=== PATIENT | male | born 1955 | race Caucasian/White ===

== ENCOUNTER 2019-07-02 18:03 | Inpatient (IN) | payer MEDICAID ==
[~2019-07-02] VITALS: Ht 170.2 cm; Wt 88.0 kg
[2019-07-02 18:11] VITALS: BP_SYST 110
[2019-07-02] MEDS ORDERED: LIDOCAINE 1% 10 MG/ML, 20 ML MDV INJ ONE (18:45)
[2019-07-02] MEDS ORDERED: CRAN450T9 PO (18:51)
[2019-07-02] MEDS ORDERED: ASPI-1153 PO (18:51)
[2019-07-02] MEDS ORDERED: BUME1TAB9 PO (18:51)
[2019-07-02] MEDS ORDERED: hydromorphone PO (18:54)
[2019-07-02] MEDS ORDERED: VANCOMYCIN HCL 1,000 MG in NS 250 ML IV ONE (19:00)
[2019-07-02] MEDS ORDERED: NACL 0.9% 1,000 ML IV ONE (19:00)
[2019-07-02] MEDS ORDERED: METO25TA3 PO (19:03)
[2019-07-02] MEDS ORDERED: NA P133E41 RC (19:03)
[2019-07-02] MEDS ORDERED: MOM PO (19:03)
[2019-07-02] MEDS ORDERED: MULT-1100 PO (19:03)
[2019-07-02] MEDS ORDERED: FERR-31 PO (19:03)
[2019-07-02] MEDS ORDERED: ESCI20TA PO (19:03)
[2019-07-02] MEDS ORDERED: ASCO500T20 PO (19:03)
[2019-07-02] MEDS ORDERED: PRO40 PO (19:03)
[2019-07-02] MEDS ORDERED: BISA-79 PO (19:03)
[2019-07-02] MEDS ORDERED: ACET325C6 PO (19:03)
[2019-07-02] MEDS ORDERED: DOCU-144 PO (19:03)
[2019-07-02] MEDS ORDERED: ZINC220T4 PO (19:03)
[2019-07-02] MEDS ORDERED: LOSA25TA3 PO (19:03)
[2019-07-02] MEDS ORDERED: AMIN30LI2 PO (19:03)
[2019-07-02] MEDS ORDERED: SPIR25TA6 PO (19:03)
[2019-07-02] MEDS ORDERED: MELA5TAB12 PO (19:03)
[2019-07-02] MEDS ORDERED: HYDR-4272 PO (19:03)
[2019-07-02 19:17] LABS: BASOPHILS # (AUTO) 0.1 K/uL (0.0-0.2); BASOPHILS % (AUTO) 0.7 % (0.0-2.0); EOSINOPHILS # (AUTO) 0.2 K/uL (0.0-0.4); EOSINOPHILS % (AUTO) 1.5 % (0.0-4.0); HEMATOCRIT 39.5 % (36-54); HEMOGLOBIN 13.5 g/dL (14.0-18.0); LYMPHOCYTES # (AUTO) 0.6 K/uL (1.0-5.5); LYMPHOCYTES % (AUTO) 5.2 % (20.5-51.5); MEAN CORPUSCULAR HEMOGLOBIN 36 pg (27-31); MEAN CORPUSCULAR HGB CONC 34 % (32-36); MEAN CORPUSCULAR VOLUME 105 fL (79.0-98.0); MONOCYTES # (AUTO) 1.1 K/uL (0.0-1.0); MONOCYTES % (AUTO) 9.8 % (1.7-9.3); NEUTROPHILS # (AUTO) 9.3 K/uL (1.8-7.7); PLATELET COUNT (AUTO) 73 K/uL (130-430); RED BLOOD CELL COUNT(AUTO) 3.78 MIL/uL (4.2-6.2); RED CELL DISTRIBUTION WIDTH 14.8 % (9.0-15.0); WHITE BLOOD COUNT (AUTO) 11.2 K/uL (4.8-10.8)
[2019-07-02 19:35] LABS: CALCIUM 8.7 mg/dL (8.4-11.0); CREATININE 1.51 mg/dL (0.55-1.30); POTASSIUM 4.3 mmol/L (3.5-5.1)
[2019-07-02] MEDS ORDERED: VANCOMYCIN HCL 1000 MG/VIAL IV ONE (19:35)
[2019-07-02 19:39] LABS: INR 1.3 (0.80-1.20); PROTHROMBIN TIME 12.5 SECS (9.5-12.5)
[2019-07-02 19:44] LABS: NEUTROPHILS % (AUTO) 82.8 % (40.0-70.0)
[2019-07-02 19:50] LABS: ALBUMIN 2.8 g/dL (3.4-4.8); TOTAL BILIRUBIN 2.7 mg/dL (0.0-1.0)
[2019-07-02 20:51] LABS: BILIRUBIN,URINE NEGATIVE (NEGATIVE); BLOOD, URINE NEGATIVE (NEGATIVE); CLARITY/URINE CLEAR (CLEAR); COLOR,URINE AMBER (YELLOW); GLUCOSE,URINE NEGATIVE (NEGATIVE); KETONES,URINE NEGATIVE (NEGATIVE); LEUKOCYTE ESTERASE ,URINE NEGATIVE (NEGATIVE); NITRITE, URINE NEGATIVE (NEGATIVE); PROTEIN URINE NEGATIVE (NEGATIVE)
[2019-07-02 21:25] VITALS: BP_SYST 96
[2019-07-02] MEDS: MORPHINE 2 MG/ML INJ. SYRINGE IVP PRN (21:55)
[2019-07-03 00:53] VITALS: BP_SYST 92
[2019-07-03] MEDS: MORPHINE 2 MG/ML INJ. SYRINGE IVP PRN ×5 (01:43→19:50)
[2019-07-03 07:55] VITALS: BP_SYST 110
[2019-07-03 08:04] LABS: ALBUMIN 2.1 g/dL (3.4-4.8); CALCIUM 7.7 mg/dL (8.4-11.0); CREATININE 0.92 mg/dL (0.55-1.30); POTASSIUM 3.8 mmol/L (3.5-5.1); TOTAL BILIRUBIN 2.6 mg/dL (0.0-1.0)
[2019-07-03] MEDS ORDERED: VANCOMYCIN HCL 1,000 MG in NS 250 ML IV SCH (09:00)
[2019-07-03 11:28] VITALS: BP_SYST 106
[2019-07-03 15:49] VITALS: BP_SYST 118
[2019-07-03] MEDS: VANCOMYCIN HCL 1,000 MG in NS 250 ML IV SCH (19:44)
[2019-07-03 20:00] VITALS: BP_SYST 129
[2019-07-03] MEDS ORDERED: MILK OF MAGNESIA 30 ML UDC PO PRN (20:15)
[2019-07-03] MEDS ORDERED: BISACODYL 5 MG TABLET.DR (DULCOLAX) PO PRN (20:15)
[2019-07-04] MEDS: MORPHINE 2 MG/ML INJ. SYRINGE IVP PRN ×2 (00:23→05:45)
[2019-07-04 00:51] VITALS: BP_SYST 127
[2019-07-04] MEDS ORDERED: SODIUM PHOSPHATE,MONO-DIBASIC 133 ML ENEMA RC PRN (02:00)
[2019-07-04 07:25] LABS: BASOPHILS % (AUTO) 0.6 % (0.0-2.0); EOSINOPHILS # (AUTO) 0.1 K/uL (0.0-0.4); LYMPHOCYTES # (AUTO) 0.4 K/uL (1.0-5.5); LYMPHOCYTES % (AUTO) 14.4 % (20.5-51.5); MONOCYTES # (AUTO) 0.3 K/uL (0.0-1.0); NEUTROPHILS # (AUTO) 2.2 K/uL (1.8-7.7); WHITE BLOOD COUNT (AUTO) 3.1 K/uL (4.8-10.8)
[2019-07-04 07:50] VITALS: BP_SYST 115
[2019-07-04 07:51] LABS: ALBUMIN 2.1 g/dL (3.4-4.8); C-REACTIVE PROTEIN QUANT 3.4 mg/dL (0-0.5); CREATININE 0.78 mg/dL (0.55-1.30); POTASSIUM 4.3 mmol/L (3.5-5.1); TOTAL BILIRUBIN 2.5 mg/dL (0.0-1.0)
[2019-07-04 07:53] LABS: EOSINOPHILS % (AUTO) 3.2 % (0.0-4.0); HEMATOCRIT 34.5 % (36-54); MEAN CORPUSCULAR HEMOGLOBIN 37 pg (27-31); MEAN CORPUSCULAR HGB CONC 35 % (32-36); MEAN CORPUSCULAR VOLUME 105 fL (79.0-98.0); NEUTROPHILS % (AUTO) 71.8 % (40.0-70.0); RED BLOOD CELL COUNT(AUTO) 3.28 MIL/uL (4.2-6.2); RED CELL DISTRIBUTION WIDTH 14.4 % (9.0-15.0)
[2019-07-04 08:15] LABS: CALCIUM 8.3 mg/dL (8.4-11.0)
[2019-07-04 08:16] LABS: PLATELET COUNT (AUTO) 39 K/uL (130-430)
[2019-07-04] MEDS: DOCUSATE SODIUM 100 MG CAPSULE PO SCH (08:37)
[2019-07-04] MEDS: MULTIVITS,CA,MINERALS/IRON/FA 1 TABLET PO SCH (08:37)
[2019-07-04] MEDS: HYDROmorphone 2 MG TAB PO PRN (08:37)
[2019-07-04] MEDS: FERROUS SULFATE 325 MG TABLET.DR PO SCH ×2 (08:37→22:20)
[2019-07-04] MEDS: ASCORBIC ACID 500 MG TABLET PO SCH (08:37)
[2019-07-04] MEDS: CITALOPRAM HYDROBROMIDE 20 MG TABLET PO SCH (08:37)
[2019-07-04] MEDS: ASPIRIN 81 MG TABLET(ECOTRIN) PO SCH (08:37)
[2019-07-04] MEDS: METOPROLOL SUCCINATE 25 MG TAB.SR.24H (TOPROL XL) PO SCH (08:38)
[2019-07-04] MEDS: SPIRONOLACTONE 25 MG TABLET (ALDACTONE) PO SCH (08:38)
[2019-07-04] MEDS: PANTOPRAZOLE SODIUM 40 MG TAB PO SCH (08:38)
[2019-07-04] MEDS: LOSARTAN POTASSIUM 25 MG TABLET PO SCH (08:38)
[2019-07-04] MEDS: VANCOMYCIN HCL 1,000 MG in NS 250 ML IV SCH ×2 (08:43→22:10)
[2019-07-04 08:53] LABS: ERYTHROCYTE SEDIMENTATION RATE 14 MM/HR (0-15)
[2019-07-04] MEDS ORDERED: NON-FORMULARY MEDICATION (Amino Acids/Protein Hydrolys (Pro-Stat Liquid) 30 ML) PO SCH (09:00)
[2019-07-04] MEDS: BUMETANIDE 1 MG TABLET PO SCH (09:29)
[2019-07-04 13:05] VITALS: BP_SYST 149
[2019-07-04] MEDS ORDERED: MUPIROCIN 2% TOPICAL OINTMENT 22 GM NS ONE (14:00)
[2019-07-04] MEDS ORDERED: BALSAM PERU/CASTOR OIL 60 GM OINT...G. TP ONE (16:00)
[2019-07-04] MEDS: HYDROcodone/ACETAMIN 5-325 MG TAB (NORCO/ VICODIN) PO PRN (16:07)
[2019-07-04 17:02] VITALS: BP_SYST 163
[2019-07-04 20:20] VITALS: BP_SYST 130
[2019-07-04] MEDS: MUPIROCIN 2% TOPICAL OINTMENT 22 GM NS SCH (22:20)
[2019-07-04] MEDS: MELATONIN 3 MG TABLET PO SCH (22:21)
[2019-07-05 00:05] VITALS: BP_SYST 96
[2019-07-05 04:00] VITALS: BP_SYST 135
[2019-07-05] MEDS: HYDROmorphone 2 MG TAB PO PRN ×3 (04:20→17:32)
[2019-07-05 06:48] LABS: BASOPHILS % (AUTO) 0.3 % (0.0-2.0); EOSINOPHILS % (AUTO) 0.5 % (0.0-4.0); HEMATOCRIT 34.3 % (36-54); HEMOGLOBIN 11.9 g/dL (14.0-18.0); LYMPHOCYTES # (AUTO) 0.7 K/uL (1.0-5.5); LYMPHOCYTES % (AUTO) 9.8 % (20.5-51.5); MEAN CORPUSCULAR HEMOGLOBIN 37 pg (27-31); MEAN CORPUSCULAR HGB CONC 35 % (32-36); MEAN CORPUSCULAR VOLUME 106 fL (79.0-98.0); MONOCYTES # (AUTO) 0.5 K/uL (0.0-1.0); MONOCYTES % (AUTO) 7.8 % (1.7-9.3); NEUTROPHILS # (AUTO) 5.6 K/uL (1.8-7.7); NEUTROPHILS % (AUTO) 81.6 % (40.0-70.0); PLATELET COUNT (AUTO) 55 K/uL (130-430); RED BLOOD CELL COUNT(AUTO) 3.24 MIL/uL (4.2-6.2); RED CELL DISTRIBUTION WIDTH 14.4 % (9.0-15.0); WHITE BLOOD COUNT (AUTO) 6.8 K/uL (4.8-10.8)
[2019-07-05 06:52] LABS: CALCIUM 8.1 mg/dL (8.4-11.0); CREATININE 0.84 mg/dL (0.55-1.30); POTASSIUM 3.9 mmol/L (3.5-5.1)
[2019-07-05 06:53] LABS: PHOSPHORUS 2.6 mg/dL (2.7-4.5)
[2019-07-05 09:00] VITALS: BP_SYST 133
[2019-07-05] MEDS: LOSARTAN POTASSIUM 25 MG TABLET PO SCH (09:00)
[2019-07-05] MEDS: METOPROLOL SUCCINATE 25 MG TAB.SR.24H (TOPROL XL) PO SCH (09:00)
[2019-07-05] MEDS: CITALOPRAM HYDROBROMIDE 20 MG TABLET PO SCH (09:25)
[2019-07-05] MEDS: PANTOPRAZOLE SODIUM 40 MG TAB PO SCH (09:25)
[2019-07-05] MEDS: MULTIVITS,CA,MINERALS/IRON/FA 1 TABLET PO SCH (09:25)
[2019-07-05] MEDS: FERROUS SULFATE 325 MG TABLET.DR PO SCH ×2 (09:25→21:09)
[2019-07-05] MEDS: SPIRONOLACTONE 25 MG TABLET (ALDACTONE) PO SCH (09:26)
[2019-07-05] MEDS: ASCORBIC ACID 500 MG TABLET PO SCH (09:26)
[2019-07-05] MEDS: ASPIRIN 81 MG TABLET(ECOTRIN) PO SCH (09:26)
[2019-07-05] MEDS: BALSAM PERU/CASTOR OIL 60 GM OINT...G. TP SCH (09:26)
[2019-07-05] MEDS: MUPIROCIN 2% TOPICAL OINTMENT 22 GM NS SCH ×2 (09:27→21:09)
[2019-07-05] MEDS: VANCOMYCIN HCL 1,000 MG in NS 250 ML IV SCH ×2 (09:27→21:09)
[2019-07-05] MEDS: BUMETANIDE 1 MG TABLET PO SCH (09:28)
[2019-07-05] MEDS: DOCUSATE SODIUM 100 MG CAPSULE PO SCH (09:28)
[2019-07-05 12:00] VITALS: BP_SYST 134
[2019-07-05 16:54] VITALS: BP_SYST 112
[2019-07-05 19:50] VITALS: BP_SYST 130
[2019-07-05] MEDS: MELATONIN 3 MG TABLET PO SCH (21:09)
[2019-07-05] MEDS: HYDROcodone/ACETAMIN 5-325 MG TAB (NORCO/ VICODIN) PO PRN (22:16)
[2019-07-06 00:07] VITALS: BP_SYST 129
[2019-07-06 08:00] VITALS: BP_SYST 136
[2019-07-06] MEDS: ASPIRIN 81 MG TABLET(ECOTRIN) PO SCH (08:37)
[2019-07-06] MEDS: MUPIROCIN 2% TOPICAL OINTMENT 22 GM NS SCH ×2 (08:37→19:54)
[2019-07-06] MEDS: BALSAM PERU/CASTOR OIL 60 GM OINT...G. TP SCH (08:37)
[2019-07-06] MEDS: LOSARTAN POTASSIUM 25 MG TABLET PO SCH (08:38)
[2019-07-06] MEDS: BUMETANIDE 1 MG TABLET PO SCH (08:38)
[2019-07-06] MEDS: DOCUSATE SODIUM 100 MG CAPSULE PO SCH (08:38)
[2019-07-06] MEDS: MULTIVITS,CA,MINERALS/IRON/FA 1 TABLET PO SCH (08:38)
[2019-07-06] MEDS: PANTOPRAZOLE SODIUM 40 MG TAB PO SCH (08:39)
[2019-07-06] MEDS: CITALOPRAM HYDROBROMIDE 20 MG TABLET PO SCH (08:39)
[2019-07-06] MEDS: FERROUS SULFATE 325 MG TABLET.DR PO SCH ×2 (08:39→19:54)
[2019-07-06] MEDS: SPIRONOLACTONE 25 MG TABLET (ALDACTONE) PO SCH (08:39)
[2019-07-06] MEDS: METOPROLOL SUCCINATE 25 MG TAB.SR.24H (TOPROL XL) PO SCH (08:39)
[2019-07-06] MEDS: ASCORBIC ACID 500 MG TABLET PO SCH (08:39)
[2019-07-06] MEDS: VANCOMYCIN HCL 1,000 MG in NS 250 ML IV SCH ×2 (09:00→15:00)
[2019-07-06] MEDS: ONDANSETRON HCL 4 MG/2 ML VIAL IVP PRN ×2 (09:18→20:08)
[2019-07-06 13:07] VITALS: BP_SYST 147
[2019-07-06 17:11] VITALS: BP_SYST 152
[2019-07-06 19:45] VITALS: BP_SYST 155
[2019-07-06] MEDS: MELATONIN 3 MG TABLET PO SCH (19:54)
[2019-07-06] MEDS: MORPHINE 4 MG/ML INJ. SYRINGE IVP PRN (20:09)
[2019-07-06] MEDS: ACETAMINOPHEN 325 MG TABLET PO PRN (20:50)
[2019-07-06] MEDS ORDERED: cloNIDine HCL 0.1 MG TABLET PO PRN (21:00)
[2019-07-06] MEDS ORDERED: LORazepam 2 MG/ML VIAL IVP PRN (21:00)
[2019-07-06] MEDS ORDERED: ALBUTEROL SULFATE 0.083% 2.5 MG/3 ML VIAL.NEB INH PRN (21:15)
[2019-07-06 23:33] VITALS: BP_SYST 152
[2019-07-07] MEDS: MORPHINE 4 MG/ML INJ. SYRINGE IVP PRN ×5 (00:55→22:48)
[2019-07-07 01:03] VITALS: BP_SYST 107
[2019-07-07] MEDS: VANCOMYCIN HCL 1,000 MG in NS 250 ML IV SCH ×2 (02:50→15:26)
[2019-07-07 08:00] VITALS: BP_SYST 127
[2019-07-07] MEDS: BALSAM PERU/CASTOR OIL 60 GM OINT...G. TP SCH (08:25)
[2019-07-07] MEDS: MUPIROCIN 2% TOPICAL OINTMENT 22 GM NS SCH ×2 (08:25→20:10)
[2019-07-07] MEDS: DOCUSATE SODIUM 100 MG CAPSULE PO SCH (08:26)
[2019-07-07] MEDS: MULTIVITS,CA,MINERALS/IRON/FA 1 TABLET PO SCH (08:26)
[2019-07-07] MEDS: ASCORBIC ACID 500 MG TABLET PO SCH (08:26)
[2019-07-07] MEDS: ASPIRIN 81 MG TABLET(ECOTRIN) PO SCH (08:26)
[2019-07-07] MEDS: PANTOPRAZOLE SODIUM 40 MG TAB PO SCH (08:26)
[2019-07-07] MEDS: FERROUS SULFATE 325 MG TABLET.DR PO SCH ×2 (08:26→20:10)
[2019-07-07 08:39] LABS: BASOPHILS % (AUTO) 0.7 % (0.0-2.0); EOSINOPHILS # (AUTO) 0.1 K/uL (0.0-0.4); EOSINOPHILS % (AUTO) 1.7 % (0.0-4.0); HEMATOCRIT 36.8 % (36-54); HEMOGLOBIN 12.9 g/dL (14.0-18.0); LYMPHOCYTES # (AUTO) 0.9 K/uL (1.0-5.5); LYMPHOCYTES % (AUTO) 14.5 % (20.5-51.5); MEAN CORPUSCULAR HEMOGLOBIN 37 pg (27-31); MEAN CORPUSCULAR HGB CONC 35 % (32-36); MEAN CORPUSCULAR VOLUME 104 fL (79.0-98.0); MONOCYTES # (AUTO) 0.5 K/uL (0.0-1.0); MONOCYTES % (AUTO) 8.6 % (1.7-9.3); NEUTROPHILS # (AUTO) 4.4 K/uL (1.8-7.7); NEUTROPHILS % (AUTO) 74.5 % (40.0-70.0); PLATELET COUNT (AUTO) 66 K/uL (130-430); RED BLOOD CELL COUNT(AUTO) 3.55 MIL/uL (4.2-6.2); RED CELL DISTRIBUTION WIDTH 14.1 % (9.0-15.0); WHITE BLOOD COUNT (AUTO) 5.9 K/uL (4.8-10.8)
[2019-07-07 08:53] LABS: ALBUMIN 2.6 g/dL (3.4-4.8); CALCIUM 7.9 mg/dL (8.4-11.0); CREATININE 0.94 mg/dL (0.55-1.30); POTASSIUM 3.4 mmol/L (3.5-5.1); TOTAL BILIRUBIN 1.9 mg/dL (0.0-1.0)
[2019-07-07] MEDS: LOSARTAN POTASSIUM 25 MG TABLET PO SCH (09:00)
[2019-07-07] MEDS: METOPROLOL SUCCINATE 25 MG TAB.SR.24H (TOPROL XL) PO SCH (09:00)
[2019-07-07] MEDS: SPIRONOLACTONE 25 MG TABLET (ALDACTONE) PO SCH (09:00)
[2019-07-07] MEDS: ACETAMINOPHEN 325 MG TABLET PO PRN (10:34)
[2019-07-07] MEDS: CITALOPRAM HYDROBROMIDE 20 MG TABLET PO SCH (10:35)
[2019-07-07] MEDS: BUMETANIDE 1 MG TABLET PO SCH (10:35)
[2019-07-07 12:58] VITALS: BP_SYST 122
[2019-07-07 18:03] VITALS: BP_SYST 110
[2019-07-07] MEDS ORDERED: POTASSIUM CHLORIDE 20 MEQ TAB.PRT.SR PO ONE (19:00)
[2019-07-07 19:50] VITALS: BP_SYST 130
[2019-07-07] MEDS: MELATONIN 3 MG TABLET PO SCH (20:10)
[2019-07-08 00:24] VITALS: BP_SYST 118
[2019-07-08] MEDS: VANCOMYCIN HCL 1,000 MG in NS 250 ML IV SCH ×2 (02:46→14:42)
[2019-07-08] MEDS: MORPHINE 4 MG/ML INJ. SYRINGE IVP PRN ×5 (05:04→21:34)
[2019-07-08 07:10] LABS: BASOPHILS % (AUTO) 0.5 % (0.0-2.0); EOSINOPHILS # (AUTO) 0.1 K/uL (0.0-0.4); EOSINOPHILS % (AUTO) 3.3 % (0.0-4.0); HEMATOCRIT 34.7 % (36-54); HEMOGLOBIN 12.3 g/dL (14.0-18.0); LYMPHOCYTES # (AUTO) 0.6 K/uL (1.0-5.5); LYMPHOCYTES % (AUTO) 16.3 % (20.5-51.5); MEAN CORPUSCULAR HEMOGLOBIN 37 pg (27-31); MEAN CORPUSCULAR HGB CONC 35 % (32-36); MEAN CORPUSCULAR VOLUME 104 fL (79.0-98.0); MONOCYTES # (AUTO) 0.4 K/uL (0.0-1.0); MONOCYTES % (AUTO) 9.4 % (1.7-9.3); NEUTROPHILS # (AUTO) 2.7 K/uL (1.8-7.7); NEUTROPHILS % (AUTO) 70.5 % (40.0-70.0); PLATELET COUNT (AUTO) 54 K/uL (130-430); RED BLOOD CELL COUNT(AUTO) 3.35 MIL/uL (4.2-6.2); RED CELL DISTRIBUTION WIDTH 14.2 % (9.0-15.0); WHITE BLOOD COUNT (AUTO) 3.9 K/uL (4.8-10.8)
[2019-07-08 07:37] LABS: ALBUMIN 2.4 g/dL (3.4-4.8); CREATININE 0.92 mg/dL (0.55-1.30); POTASSIUM 3.7 mmol/L (3.5-5.1); TOTAL BILIRUBIN 1.4 mg/dL (0.0-1.0)
[2019-07-08] MEDS: DOCUSATE SODIUM 100 MG CAPSULE PO SCH (08:59)
[2019-07-08] MEDS: MULTIVITS,CA,MINERALS/IRON/FA 1 TABLET PO SCH (08:59)
[2019-07-08] MEDS: SPIRONOLACTONE 25 MG TABLET (ALDACTONE) PO SCH (09:00)
[2019-07-08] MEDS: LOSARTAN POTASSIUM 25 MG TABLET PO SCH (09:00)
[2019-07-08] MEDS: ASPIRIN 81 MG TABLET(ECOTRIN) PO SCH (09:00)
[2019-07-08] MEDS: ASCORBIC ACID 500 MG TABLET PO SCH (09:00)
[2019-07-08] MEDS: CITALOPRAM HYDROBROMIDE 20 MG TABLET PO SCH (09:00)
[2019-07-08] MEDS: PATIENT'S OWN TABLET PO SCH (09:00)
[2019-07-08] MEDS: BUMETANIDE 1 MG TABLET PO SCH (09:00)
[2019-07-08] MEDS: METOPROLOL SUCCINATE 25 MG TAB.SR.24H (TOPROL XL) PO SCH (09:00)
[2019-07-08] MEDS: FERROUS SULFATE 325 MG TABLET.DR PO SCH ×2 (09:01→20:29)
[2019-07-08] MEDS: PANTOPRAZOLE SODIUM 40 MG TAB PO SCH (09:01)
[2019-07-08] MEDS: MUPIROCIN 2% TOPICAL OINTMENT 22 GM NS SCH ×2 (09:02→20:29)
[2019-07-08] MEDS: BALSAM PERU/CASTOR OIL 60 GM OINT...G. TP SCH (09:14)
[2019-07-08 09:25] VITALS: BP_SYST 104
[2019-07-08 12:10] VITALS: BP_SYST 118
[2019-07-08] MEDS: ACETAMINOPHEN 325 MG TABLET PO PRN (14:50)
[2019-07-08 16:50] VITALS: BP_SYST 105
[2019-07-08 20:28] VITALS: BP_SYST 105
[2019-07-08] MEDS: MELATONIN 3 MG TABLET PO SCH (20:29)
[2019-07-08] MEDS: ONDANSETRON HCL 4 MG/2 ML VIAL IVP PRN (21:44)
[2019-07-09 01:31] VITALS: BP_SYST 100
[2019-07-09] MEDS: VANCOMYCIN HCL 1,000 MG in NS 250 ML IV SCH (03:00)
[2019-07-09] MEDS: MORPHINE 4 MG/ML INJ. SYRINGE IVP PRN ×3 (03:01→13:23)
[2019-07-09 08:29] LABS: BASOPHILS % (AUTO) 0.6 % (0.0-2.0); EOSINOPHILS # (AUTO) 0.1 K/uL (0.0-0.4); EOSINOPHILS % (AUTO) 4.1 % (0.0-4.0); HEMATOCRIT 33.3 % (36-54); HEMOGLOBIN 11.7 g/dL (14.0-18.0); LYMPHOCYTES # (AUTO) 0.5 K/uL (1.0-5.5); LYMPHOCYTES % (AUTO) 15.7 % (20.5-51.5); MEAN CORPUSCULAR HEMOGLOBIN 37 pg (27-31); MEAN CORPUSCULAR HGB CONC 35 % (32-36); MEAN CORPUSCULAR VOLUME 104 fL (79.0-98.0); MONOCYTES # (AUTO) 0.3 K/uL (0.0-1.0); MONOCYTES % (AUTO) 8.4 % (1.7-9.3); NEUTROPHILS # (AUTO) 2.4 K/uL (1.8-7.7); NEUTROPHILS % (AUTO) 71.2 % (40.0-70.0); RED BLOOD CELL COUNT(AUTO) 3.19 MIL/uL (4.2-6.2); RED CELL DISTRIBUTION WIDTH 14.3 % (9.0-15.0); WHITE BLOOD COUNT (AUTO) 3.3 K/uL (4.8-10.8)
[2019-07-09 08:44] LABS: PLATELET COUNT (AUTO) 45 K/uL (130-430)
[2019-07-09] MEDS: LOSARTAN POTASSIUM 25 MG TABLET PO SCH (09:00)
[2019-07-09] MEDS: METOPROLOL SUCCINATE 25 MG TAB.SR.24H (TOPROL XL) PO SCH (09:00)
[2019-07-09] MEDS: BUMETANIDE 1 MG TABLET PO SCH (09:00)
[2019-07-09] MEDS: PATIENT'S OWN TABLET PO SCH (09:00)
[2019-07-09] MEDS: DOCUSATE SODIUM 100 MG CAPSULE PO SCH (09:00)
[2019-07-09] MEDS: SPIRONOLACTONE 25 MG TABLET (ALDACTONE) PO SCH (09:00)
[2019-07-09 09:26] VITALS: BP_SYST 115
[2019-07-09] MEDS: MULTIVITS,CA,MINERALS/IRON/FA 1 TABLET PO SCH (09:27)
[2019-07-09] MEDS: ASCORBIC ACID 500 MG TABLET PO SCH (09:28)
[2019-07-09] MEDS: CITALOPRAM HYDROBROMIDE 20 MG TABLET PO SCH (09:28)
[2019-07-09] MEDS: FERROUS SULFATE 325 MG TABLET.DR PO SCH (09:28)
[2019-07-09] MEDS: ASPIRIN 81 MG TABLET(ECOTRIN) PO SCH (09:28)
[2019-07-09] MEDS: PANTOPRAZOLE SODIUM 40 MG TAB PO SCH (09:28)
[2019-07-09] MEDS: MUPIROCIN 2% TOPICAL OINTMENT 22 GM NS SCH (09:34)
[2019-07-09] MEDS: BALSAM PERU/CASTOR OIL 60 GM OINT...G. TP SCH (09:35)
[2019-07-09 10:12] VITALS: BP_SYST 115
[2019-07-09 12:25] VITALS: BP_SYST 124
[2019-07-09 13:16] LABS: FOLATE (FOLIC ACID) >20.0 ng/mL (>3.0)
[2019-07-09 13:18] VITALS: BP_SYST 131
== END 2019-07-09 15:20 | disposition short-term general hospital (02) | DRG 383 ==
LOC: SED 18:03 → STU 19:42
PROVIDERS: ADMIT Internal Medicine; ATTEND Internal Medicine
PROC: 30233R1 Transfusion of Nonautologous Platelets into Peripheral Vein, Percutaneous Approach (ICD-10-PCS; principal; 2019-07-05)
PROC: 02HV33Z Insertion of Infusion Device into Superior Vena Cava, Percutaneous Approach (ICD-10-PCS; 2019-07-05)
PROC: B548ZZA Ultrasonography of Superior Vena Cava, Guidance (ICD-10-PCS; 2019-07-05)
DX: L02.213 Cutaneous abscess of chest wall (principal); N17.0 Acute kidney failure with tubular necrosis; E43 Unspecified severe protein-calorie malnutrition; D69.6 Thrombocytopenia, unspecified; M86.68 Other chronic osteomyelitis, other site; L03.313 Cellulitis of chest wall; Z60.2 Problems related to living alone; Z96.611 Presence of right artificial shoulder joint; B19.20 Unspecified viral hepatitis C without hepatic coma; D64.9 Anemia, unspecified; Z86.14 Personal history of Methicillin resistant Staphylococcus aureus infection; Z88.6 Allergy status to analgesic agent; Z95.2 Presence of prosthetic heart valve
CPT/HCPCS: 36415; 71045; 71250-TC; 76700-TC; 80048; 80053; 80202-TC; 81003; 82607; 82746; 82962; 83605; 83735-TC; 84100-TC; 84484; 85025; 85610-TC; 85651-TC; 85730-TC; 86140; 86886; 86900; 86901; 87040-TC; 87070-TC; 87081; 87086; 87186-TC; 93005; 93306; 96365; 96366; 99285; C1751; C1769; G0378; J2001; J2270; J2405; J3370; J7030; J7050; J7613; P9034